=== PATIENT | female | born 1985 | race Caucasian/White ===

== ENCOUNTER 2024-02-04 10:05 | Emergency (ER) | payer SELFPAY ==
[~2024-02-04] VITALS: Ht 167.6 cm; Wt 69.0 kg
[2024-02-04] MEDS ORDERED: xanax (10:16)
[2024-02-04] MEDS ORDERED: eliquis (10:16)
[2024-02-04 10:17] VITALS: BP 112/70; PULSE 110; RESP 16; TEMP 98.4; O2SAT 98
[2024-02-04] MEDS ORDERED: NALOXONE HCL 0.4MG/ML 1ML VIAL IV PRN (10:30)
[2024-02-04] MEDS ORDERED: SODIUM CHLORIDE 0.9% 1,000 ML IV ONE (10:30)
== END 2024-02-04 17:17 | disposition left against medical advice (07) ==
LOC: ER 10:05
DX: T50.901A Poisoning by unspecified drugs, medicaments and biological substances, accidental (unintentional), initial encounter (principal); F41.9 Anxiety disorder, unspecified; F12.90 Cannabis use, unspecified, uncomplicated; F15.90 Other stimulant use, unspecified, uncomplicated; I82.499 Acute embolism and thrombosis of other specified deep vein of unspecified lower extremity; Y92.89 Other specified places as the place of occurrence of the external cause
CPT/HCPCS: 99283; 93005; J7030